=== PATIENT | female | born 1995 | race African-American/Black ===

== ENCOUNTER 2023-05-09 11:24 | Emergency (ER) | payer MEDICAID ==
[~2023-05-09] VITALS: Ht 167.6 cm; Wt 68.2 kg
[2023-05-09 11:53] VITALS: TEMP 98
[2023-05-09] MEDS ORDERED: AMOX TR/POT CLAV 875 MG/125 MG TABLET PO ONE (13:30)
[2023-05-09] MEDS ORDERED: IBUPROFEN 400 MG TABLET PO ONE (13:30)
[2023-05-09] MEDS ORDERED: IBUP-1506 PO (14:10)
[2023-05-09] MEDS ORDERED: AMOX1TAB16 PO (14:10)
[2023-05-09 14:29] VITALS: BP 111/62; PULSE 78; RESP 18
== END 2023-05-09 14:37 | disposition home or self-care (01) ==
LOC: EMS 11:24
DX: H66.92 Otitis media, unspecified, left ear (principal)
CPT/HCPCS: 99283

== ENCOUNTER 2023-12-09 14:56 | Emergency (ER) | payer MEDICAID ==
[~2023-12-09] VITALS: Ht 170.2 cm; Wt 91.0 kg
[~2023-12-09 14:56] MED LIST: AMOX-457 PO; IBUP-1506 PO
[2023-12-09] MEDS ORDERED: OXYC-38 PO ×2 (17:46→17:49)
[2023-12-09] MEDS ORDERED: MICO15CR9 VG (17:48)
[2023-12-09] MEDS ORDERED: AMOX-457 PO (17:48)
[2023-12-09 18:00] VITALS: BP 101/71; PULSE 89; RESP 15; TEMP 97.7; O2SAT 98
== END 2023-12-09 18:36 | disposition home or self-care (01) ==
LOC: EMS 14:57
DX: N89.8 Other specified noninflammatory disorders of vagina (principal); K02.9 Dental caries, unspecified
CPT/HCPCS: 99283; Z7502